=== PATIENT | male | born 1990 | race Caucasian/White ===

== ENCOUNTER 2017-03-14 13:29 | Emergency (ER) | payer SELFPAY ==
[~2017-03-14] VITALS: Wt 84.1 kg
[2017-03-14 13:35] VITALS: BP 121/62; PULSE 81; TEMP 98.1
[2017-03-14] MEDS ORDERED: PREDNISONE20 MG PO (14:23)
== END 2017-03-14 14:36 | disposition home or self-care (01) ==
LOC: COL.ER 13:29
DX: R21 Rash and other nonspecific skin eruption (principal); F17.210 Nicotine dependence, cigarettes, uncomplicated

== ENCOUNTER 2020-05-01 18:36 | Emergency (ER) | payer SELFPAY ==
[~2020-05-01] VITALS: Ht 139.7 cm; Wt 84.1 kg
[~2020-05-01 18:36] MED LIST: PREDNISONE20 MG PO
[2020-05-01 18:41] VITALS: BP 119/76; TEMP 97.8
[2020-05-01] MEDS ORDERED: MEDROL 4MG DOSPA4 MG PO (19:38)
[2020-05-01 20:01] VITALS: PULSE 89
== END 2020-05-01 20:01 | disposition home or self-care (01) ==
LOC: COL.ER 18:36
DX: M54.32 Sciatica, left side (principal)
CPT/HCPCS: J1100; J1170; J2550

== ENCOUNTER 2020-05-06 15:54 | Emergency (ER) | payer SELFPAY ==
[~2020-05-06] VITALS: Ht 167.6 cm; Wt 84.1 kg
[~2020-05-06 15:54] MED LIST changes: +MEDROL 4MG DOSPA4 MG PO
[2020-05-06] MEDS ORDERED: NORCO 325 MG-51 TAB PO (17:33)
[2020-05-06] MEDS ORDERED: NAPROSYN500 MG PO (17:41)
[2020-05-06 19:06] VITALS: BP 126/74; PULSE 84; TEMP 97.1
== END 2020-05-06 18:50 | disposition home or self-care (01) ==
LOC: COL.ER 15:54
DX: M54.32 Sciatica, left side (principal); W11.XXXA Fall on and from ladder, initial encounter
CPT/HCPCS: J1885